=== PATIENT | male | born 1985 ===

== ENCOUNTER 2019-08-16 11:13 | Observation (INO) | payer SELFPAY ==
[~2019-08-16] VITALS: Ht 162 cm; Wt 80.5 kg
--- NOTE | 2019-08-16 11:53 | NUR ---
PT UNSURE OF MEDS STATES WAS GIVEN SOME KIND OF INSULIN PEN AND TOLD TO DIAL TO 5 AND TAKES IN AM
[2019-08-16] MEDS ORDERED: NS IV 1000 ML 1,000 ML IV SCH ×2 (12:15→13:30)
[2019-08-16 12:21] LABS: BILIRUBIN,URINE NEGATIVE (NEGATIVE); CLARITY,URINE CLEAR; COLOR,URINE YELLOW; GLUCOSE, URINE (UA) 4+ (NEGATIVE); KETONES,URINE 4+ (NEGATIVE); LEUKOCYTE ESTERASE ,URINE NEGATIVE (NEGATIVE); NITRITE,URINE NEGATIVE (NEGATIVE); PH,URINE 5 (5-9); PROTEIN,URINE 2+ (NEGATIVE); UROBILINOGEN,URINE NORMAL (NORMAL)
[2019-08-16 12:29] LABS: BACTERIA,URINE NEGATIVE /HPF; SQUAMOUS EPITHELIAL CELL,UR 0-2 /HPF; WBC,URINE RARE /HPF
--- NOTE | 2019-08-16 12:34 | ED General ---
General Chief Complaint: Glucose Problems Stated Complaint: HIGH BLOOD SUGAR Nursing Triage Note: PT SPEAKS [place]EN[place], INTERPRETOR W PT, PT HAS FSBS 228 AT THIS X. STATES WAS SENT BY [facility] FOR ADMISSION BY DR HERNANDEZ D/T SUGARS ELEVATED. Nursing Sepsis Screen: No Definite Risk Source of Information: Patient Exam Limitations: No Limitations History of Present Illness Date Seen by Provider: Aug 16, 2019 Time Seen by Provider: 12:29 Initial Comments Patient states he was referred to the emergency room to be admitted to the hospital for sugar control. He was diagnosed with diabetes about a month ago at [facility], was started on insulin 10units daily 2 days ago. He's been seeing Dr. Hernandez daily for the past 3 days, was referred to the emergency room yesterday but didn't know where the emergency room was at he did not come here until today. He reports no symptoms, he states he feels good, his blood sugar here was 228. Timing/Duration: Other Severity: Moderate Associated Systoms: Denies Symptoms Allergies and Home Medications Allergies Coded Allergies: No Known Drug Allergies (Unverified , 08/16/19) Patient Home Medication List Home Medication List Reviewed: Yes Review of Systems Review of Systems Constitutional: see HPI EENTM: see HPI Respiratory: no symptoms reported Cardiovascular: no symptoms reported Genitourinary: no symptoms reported Musculoskeletal: no symptoms reported Skin: no symptoms reported Psychiatric/Neurological: No Symptoms Reported Hematologic/Lymphatic: No Symptoms Reported Immunological/Allergic: no symptoms reported Past Afqpdib-Bvnjge-Dzoqna Hx Patient Social History Alcohol Use: Past History Number of Drinks Today: 0 Recreational Drug Use: No Smoking Status: Never a Smoker Recent Foreign Travel: No Contact w/Someone Who Travel: No Recent Infectious Disease Expo: No Recent Hopitalizations: No Past Medical History Surgeries: No Respiratory: No Cardiac: No Neurological: No Genitourinary: No Gastrointestinal: No Musculoskeletal: No Endocrine: Yes Diabetes, Insulin dep Are Your Blood Sugars Over 250: Yes HEENT: No Cancer: No Psychosocial: No Integumentary: No Blood Disorders: No Adverse Reaction/Blood Tranf: No Physical Exam Vital Signs Vital Signs - First Documented 08/16/19 11:39 Temp 36.8 Pulse 74 Resp 18 B/P (MAP) 119/78 (92) Pulse Ox 97 Capillary Refill : Less Than 3 Seconds Height, Weight, BMI Height: '" Weight: lbs. oz. kg; 30.00 BMI Method: General Appearance: No Apparent Distress, WD/WN Eyes: Bilateral Eye Normal Inspection, Bilateral Eye PERRL, Bilateral Eye EOMI HEENT: PERRL/EOMI, TMs Normal Neck: Full Range of Motion, Normal Inspection Respiratory: No Accessory Muscle Use, No Respiratory Distress Cardiovascular: Regular Rate, Rhythm, Normal Peripheral Pulses Gastrointestinal: Normal Bowel Sounds, Non Tender, Soft Extremity: Normal Capillary Refill, Normal Inspection Neurologic/Psychiatric: Alert, Oriented x3 Skin: Normal Color, Warm/Dry Progress/Results/Core Measures Suspected Sepsis Recent Fever Within 48 Hours: No Infection Criteria Present: None New/Unexplained Altered Menta: No Sepsis Screen: No Definite Risk SIRS Temperature: Pulse: 74 Respiratory Rate: 18 Laboratory Tests 08/16/19 12:25: White Blood Count 4.3 Blood Pressure 119 /78 Mean: 92 Laboratory Tests 08/16/19 12:25: Creatinine 0.85, Platelet Count 259, Total Bilirubin 1.2H Results/Orders Lab Results Laboratory Tests Test 08/16/19 11:40 08/16/19 12:13 08/16/19 12:25 Range/Units Glucometer 228 H 70-110 MG/DL Urine Color YELLOW Urine Clarity CLEAR Urine pH 5 5-9 Urine Specific [place] 1.025 H 1.016-1.022 Urine Protein 2+ H NEGATIVE Urine Glucose (UA) 4+ H NEGATIVE Urine Ketones 4+ H NEGATIVE Urine Nitrite NEGATIVE NEGATIVE Urine Bilirubin NEGATIVE NEGATIVE Urine Urobilinogen NORMAL NORMAL MG/DL Urine Leukocyte Esterase NEGATIVE NEGATIVE Urine RBC (Auto) NEGATIVE NEGATIVE Urine RBC NONE /HPF Urine WBC RARE /HPF Urine Squamous Epithelial Cells 0-2 /HPF Urine Crystals NONE /LPF Urine Bacteria NEGATIVE /HPF Urine Casts NONE /LPF Urine Mucus NEGATIVE /LPF Urine Culture Indicated NO White Blood Count 4.3 4.3-11.0 10^3/uL Red Blood Count 5.18 4.35-5.85 10^6/uL Hemoglobin 16.7 13.3-17.7 G/DL Hematocrit 47 40-54 % Mean Corpuscular Volume 90 80-99 FL Mean Corpuscular Hemoglobin 32 25-34 PG Mean Corpuscular Hemoglobin Concent 36 32-36 G/DL Red Cell Distribution Width 14.9 H 10.0-14.5 % Platelet Count 259 130-400 10^3/uL Mean Platelet Volume 9.8 7.4-10.4 FL Neutrophils (%) (Auto) 62 42-75 % Lymphocytes (%) (Auto) 25 12-44 % Monocytes (%) (Auto) 10 0-12 % Eosinophils (%) (Auto) 1 0-10 % Basophils (%) (Auto) 1 0-10 % Neutrophils # (Auto) 2.7 1.8-7.8 X 10^3 Lymphocytes # (Auto) 1.1 1.0-4.0 X 10^3 Monocytes # (Auto) 0.4 0.0-1.0 X 10^3 Eosinophils # (Auto) 0.1 0.0-0.3 10^3/uL Basophils # (Auto) 0.1 0.0-0.1 10^3/uL Sodium Level 137 135-145 MMOL/L Potassium Level 4.4 3.6-5.0 MMOL/L Chloride Level 100 98-107 MMOL/L Carbon Dioxide Level 22 21-32 MMOL/L Anion Gap 15 H 5-14 MMOL/L Blood Urea Nitrogen 14 7-18 MG/DL Creatinine 0.85 0.60-1.30 MG/DL Estimat Glomerular Filtration Rate > 60 BUN/Creatinine Ratio 16 Glucose Level 236 H 70-105 MG/DL Calcium Level 9.9 8.5-10.1 MG/DL Corrected Calcium 8.5-10.1 MG/DL Total Bilirubin 1.2 H 0.1-1.0 MG/DL Aspartate Amino Transf (AST/SGOT) 25 5-34 U/L Alanine Aminotransferase (ALT/SGPT) 25 0-55 U/L Alkaline Phosphatase 159 H 40-136 U/L Total Protein 8.5 H 6.4-8.2 GM/DL Albumin 4.6 H 3.2-4.5 GM/DL My Orders Orders - BASSAM ALCARAZ RETAIL DEPARTMENT SUPERVISOR Cbc With Automated Diff (08/16/19 11:51) Comprehensive Metabolic Panel (08/16/19 11:51) Ua Culture If Indicated (08/16/19 11:51) Ed Iv/Invasive Line Start (08/16/19 11:51) Ns Iv 1000 Ml (Sodium Chloride 0.9%) (08/16/19 12:15) Hemoglobin A1c (08/16/19 12:16) Ns Iv 1000 Ml (Sodium Chloride 0.9%) (08/16/19 13:30) Vital Signs/I&O 08/16/19 11:39 Temp 36.8 Pulse 74 Resp 18 B/P (MAP) 119/78 (92) Pulse Ox 97 Capillary Refill : Less Than 3 Seconds Blood Pressure Mean: 92 Departure Communication (Admissions) Time/Spoke to Admitting Phy: 14:[address] Cheney, we'll admit observation, discussed with the patient and he agrees with this plan. I'll consult underwriting assistant, the patient questions (using [employer] phone interpreters) whether the diabetes could be related to the swelling at the tip of his penis. I examined the tip of his penis and there is balanitis/whitish adherent material beneath the foreskin. Discussed with them this was a candidal infection and could be taken care of with a cream. I will use that upstairs. Impression Primary Impression: Diabetes mellitus Qualified Codes: E13.69 - Other specified diabetes mellitus with other specified complication Disposition: ADMITTED INPATIENT Condition: Stable Admissions Decision to Admit Reason: Admit from ER (General) Decision to Admit/Date: Aug 16, 2019 Time/Decision to Admit Time: 14:04 BASSAM ALCARAZ APRN Aug 16, 2019 12:34
[2019-08-16 12:48] LABS: BASOPHILS # (AUTO) 0.1 10^3/uL (0.0-0.1); BASOPHILS % (AUTO) 1 % (0-10); EOSINOPHILS # (AUTO) 0.1 10^3/uL (0.0-0.3); EOSINOPHILS % (AUTO) 1 % (0-10); HEMATOCRIT 47 % (40-54); HEMOGLOBIN 16.7 G/DL (13.3-17.7); LYMPHOCYTES # (AUTO) 1.1 X 10^3 (1.0-4.0); LYMPHOCYTES % (AUTO) 25 % (12-44); MEAN CORPUSCULAR HEMOGLOBIN 32 PG (25-34); MEAN CORPUSCULAR HGB CONC 36 G/DL (32-36); MEAN CORPUSCULAR VOLUME 90 FL (80-99); MEAN PLATELET VOLUME 9.8 FL (7.4-10.4); MONOCYTES # (AUTO) 0.4 X 10^3 (0.0-1.0); MONOCYTES % (AUTO) 10 % (0-12); NEUTROPHILS # (AUTO) 2.7 X 10^3 (1.8-7.8); NEUTROPHILS % (AUTO) 62 % (42-75); PLATELET COUNT 259 10^3/uL (130-400); RED CELL DISTRIBUTION WIDTH 14.9 % (10.0-14.5); WHITE BLOOD COUNT 4.3 10^3/uL (4.3-11.0)
[2019-08-16 13:07] LABS: ALANINE AMINOTRANSFERASE 25 U/L (0-55); ALBUMIN 4.6 GM/DL (3.2-4.5); ALKALINE PHOSPHATASE 159 U/L (40-136); BILIRUBIN,TOTAL 1.2 MG/DL (0.1-1.0); BUN/CREATININE RATIO 16; CALCIUM 9.9 MG/DL (8.5-10.1); CARBON DIOXIDE 22 MMOL/L (21-32); CHLORIDE 100 MMOL/L (98-107); CREATININE SERUM 0.85 MG/DL (0.60-1.30); GFR ESTIMATED > 60; GLUCOSE 236 MG/DL (70-105); POTASSIUM 4.4 MMOL/L (3.6-5.0); SODIUM 137 MMOL/L (135-145); TOTAL PROTEIN 8.5 GM/DL (6.4-8.2)
--- NOTE | 2019-08-16 14:45 | NUR ---
BRENNEN PARRA admitted to room 413-1, with an admitting diagnosis of DIABETES, on 08/16/19 from ED via WHEELCHAIR, accompanied by STAFF/FAMILY. BRENNEN PARRA introduced to surroundings, call light, bed controls, phone, TV, temperature control, lights, meal times, smoking policy, visitor policy, side rail policy, bathrooms and showers. BRENNEN PARRA verbalizes understanding that [facility] is not responsible for the loss or damage to any personal effects or valuables that are kept in the patients posession during their hospitalization. The following Patient Care Plans were discussed with the PATIENT: Discharge Planning,PAIN, DIABETES. BRENNEN PARRA verbalizes understanding of Interdisciplinary Patient Education. Patient and/or family were informed about the Rapid Response Team and its purpose.
[2019-08-16] MEDS ORDERED: CATHETER FLUSH 10 ML SYR IV PRN (15:00)
[2019-08-16] MEDS: NYSTATIN CREAM (MYCOSTATIN) 30 GM TUBE TP SCH ×2 (15:19→21:02)
[2019-08-16] MEDS: NS W/KCL 40 MEQ/L 1,000 ML IV SCH ×2 (15:20→23:33)
[2019-08-16] MEDS ORDERED: INSU100I10 SQ (15:38)
--- NOTE | 2019-08-16 15:38 | NUR ---
SPOKE WITH THE PATIENT ABOUT HIS MEDICATIONS. HE STATES HE WAS GIVEN AN INSULIN PEN A FEW DAYS AGO [facility] HE HAS BEEN USING 5 UNITS DAILY. I CALLED [facility] AND SPOKE WITH A NURSE WHO VERIFIED HE WAS GIVEN LANTUS 5 UNITS DAILY X 2 DAYS. PATIENT STATES HE DOES NOT TAKE ANY OTHER MEDICATIONS OR ANYTHING OTC.
[2019-08-16 16:00] VITALS: BP 126/84
--- NOTE | 2019-08-16 16:32 | History & Physical ---
HPI History of Present Illness: 34 yo male came to the ER after being instructed to yesterday by clinic because of persistent ketones and glucose in urine in spite of starting insulin, they had requested he get lab work done but he hadn't and there was concern for DKA. He states he is feeling fine. He was diagnosed with diagnosed with diabetes 3-4 days ago. He was sick for about 2 months but didn't know what was going on. He was drinking a lot of water and didn't want to eat, vision was bad and he was tired. He states he drank a lot of natural teas/plants that were good for diabetes, he states his girlfriend told him. He does feel that those made him feel better, and then when he went to the doctor he was told that he had tania betes. Tuesday at clinic he was started on insulin and he states he was checking his blood sugar at home and checked it this morning and states he was getting numbers like 244 or so. Source: patient, educational interpreter Exam Limitations: language barrier Date seen by provider: Aug 16, 2019 Time Seen by Provider: 16:35 Attending Physician Jogre Cheney MD PCP Center/[facility] [place] Consult Date of Admission Aug 16, 2019 at 14:09 Home Medications Home Medications Reviewed patient Home Medication Reconciliation performed by pharmacy medication reconciliations certified pest control technician and/or nursing. Patients Allergies have been reviewed. Allergies Coded Allergies: No Known Drug Allergies (Unverified , 08/16/19) FCW-[id number]-Kbkutk Hx Patient Social History Alcohol Use: Past History (now drinks one or two beers at a time since being sick, but prior to that was drinking a lot- cannot quantify- states a lot every day) Recreational Drug Use: No Smoking Status: Never a Smoker Recent Foreign Travel: No Contact w/other who traveled: No Recent Hopitalizations: No Recent Infectious Disease Expo: No Past Medical History PMHx: Diabetes PSurgHx: denies Family Medical History Significant Family History: Diabetes Review of Systems ([facility]) Constitutional: No fever EENTM: No nose congestion, No throat pain Respiratory: No cough, No short of breath Cardiovascular: No chest pain Gastrointestinal: abdominal pain (tingling in abdomen after insulin inject ions); No constipation, No diarrhea, No nausea, No vomiting Genitourinary: No dysuria Musculoskeletal: No joint pain Skin: rash (redness in genital area- on penis, told doctor about it and got a cream for it, denies discharge from penis) Psychiatric/Neurological: Denies Anxiety, Denies Depressed Reviewed Test Results Reviewed Test Results Lab Laboratory Tests Test 08/16/19 11:40 08/16/19 12:13 08/16/19 12:25 08/16/19 14:10 Range/Units Glucometer 228 H 174 H 70-110 MG/DL Urine Color YELLOW Urine Clarity CLEAR Urine pH 5 5-9 Urine Specific [place] 1.025 H 1.016-1.022 Urine Protein 2+ H NEGATIVE Urine Glucose (UA) 4+ H NEGATIVE Urine Ketones 4+ H NEGATIVE Urine Nitrite NEGATIVE NEGATIVE Urine Bilirubin NEGATIVE NEGATIVE Urine Urobilinogen NORMAL NORMAL MG/DL Urine Leukocyte Esterase NEGATIVE NEGATIVE Urine RBC (Auto) NEGATIVE NEGATIVE Urine RBC NONE /HPF Urine WBC RARE /HPF Urine Squamous Epithelial Cells 0-2 /HPF Urine Crystals NONE /LPF Urine Bacteria NEGATIVE /HPF Urine Casts NONE /LPF Urine Mucus NEGATIVE /LPF Urine Culture Indicated NO White Blood Count 4.3 4.3-11.0 10^3/uL Red Blood Count 5.18 4.35-5.85 10^6/uL Hemoglobin 16.7 13.3-17.7 G/DL Hematocrit 47 40-54 % Mean Corpuscular Volume 90 80-99 FL Mean Corpuscular Hemoglobin 32 25-34 PG Mean Corpuscular Hemoglobin Concent 36 32-36 G/DL Red Cell Distribution Width 14.9 H 10.0-14.5 % Platelet Count 259 130-400 10^3/uL Mean Platelet Volume 9.8 7.4-10.4 FL Neutrophils (%) (Auto) 62 42-75 % Lymphocytes (%) (Auto) 25 12-44 % Monocytes (%) (Auto) 10 0-12 % Eosinophils (%) (Auto) 1 0-10 % Basophils (%) (Auto) 1 0-10 % Neutrophils # (Auto) 2.7 1.8-7.8 X 10^3 Lymphocytes # (Auto) 1.1 1.0-4.0 X 10^3 Monocytes # (Auto) 0.4 0.0-1.0 X 10^3 Eosinophils # (Auto) 0.1 0.0-0.3 10^3/uL Basophils # (Auto) 0.1 0.0-0.1 10^3/uL Sodium Level 137 135-145 MMOL/L Potassium Level 4.4 3.6-5.0 MMOL/L Chloride Level 100 98-107 MMOL/L Carbon Dioxide Level 22 21-32 MMOL/L Anion Gap 15 H 5-14 MMOL/L Blood Urea Nitrogen 14 7-18 MG/DL Creatinine 0.85 0.60-1.30 MG/DL Estimat Glomerular Filtration Rate > 60 BUN/Creatinine Ratio 16 Glucose Level 236 H 70-105 MG/DL Calcium Level 9.9 8.5-10.1 MG/DL Corrected Calcium 8.5-10.1 MG/DL Total Bilirubin 1.2 H 0.1-1.0 MG/DL Aspartate Amino Transf (AST/SGOT) 25 5-34 U/L Alanine Aminotransferase (ALT/SGPT) 25 0-55 U/L Alkaline Phosphatase 159 H 40-136 U/L Total Protein 8.5 H 6.4-8.2 GM/DL Albumin 4.6 H 3.2-4.5 GM/DL Physical Exam-(CHC) Physical Exam Vital Signs VS - Last 72 Hours, by Label 08/16/19 08/16/19 08/16/19 08/16/19 11:39 14:09 16:00 17:27 Temp 36.8 36.8 36.4 36.4 Pulse 74 74 68 68 Resp 18 18 18 16 B/P (MAP) 119/78 (92) 119/78 (92) 126/84 (98) 126/84 Pulse Ox 97 97 99 99 O2 Delivery Room Air Room Air 08/16/19 08/16/19 17:45 19:32 Temp 36.6 Pulse 73 Resp 16 B/P (MAP) 114/76 (89) Pulse Ox 97 O2 Delivery Room Air Room Air Capillary Refill : Less Than 3 Seconds General Appearance: WD/WN, no apparent distress Respiratory: lungs clear, normal breath sounds Cardiovascular: regular rate, rhythm, no murmur Gastrointestinal: normal bowel sounds, non tender, soft Extremities: no pedal edema Neurologic/Psychiatric: alert, normal mood/affect Skin: normal color, warm/dry Assessment/Plan Assessment/Plan Admission Status: Observation (1) Diabetes mellitus Status: Chronic Assessment & Plan: Sliding scale insulin, diabetic diet, diabetic education. AG 15 but CO2 okay, monitor closely. Qualifiers: Qualified Codes: E13.65 - Other specified diabetes mellitus with hyperglycemia (2) Elevated bilirubin Status: Acute Assessment & Plan: Check liver/gall bladder ultrasound and hepatitis panel given heavy alcohol use history (3) Elevated alkaline phosphatase level Status: Acute (4) DVT prophylaxis Status: Acute Assessment & Plan: Enoxaparin Clinical Quality Measures DVT/VTE Risk/Contraindication: RFS Level Per Nursing on Admit: 2=Moderate JORGE CHENEY MD Aug 16, 2019 16:32
[2019-08-16] MEDS ORDERED: FLU QUADRIvalent (5+ YOA) 2019-2020 (AFLURIA) 0.5 ML IM ONE (17:15)
[2019-08-16 17:27] VITALS: BP 126/84
--- NOTE | 2019-08-16 17:59 | NUR ---
BLAS LAINEZ PRECEPTOR FOR TIFFANY LAINEZ.
[2019-08-16 19:32] VITALS: BP 114/76
[2019-08-16] MEDS: inSUlin ASPART (NovoLOG) 1 UNIT/0.01 ML (CHARGE PER UNIT) SC SCH (21:02)
[2019-08-17 00:06] VITALS: BP 102/63
[2019-08-17 04:38] LABS: BASOPHILS % (AUTO) 1 % (0-10); EOSINOPHILS # (AUTO) 0.1 10^3/uL (0.0-0.3); EOSINOPHILS % (AUTO) 3 % (0-10); HEMATOCRIT 40 % (40-54); HEMOGLOBIN 13.9 G/DL (13.3-17.7); LYMPHOCYTES # (AUTO) 1.9 X 10^3 (1.0-4.0); LYMPHOCYTES % (AUTO) 41 % (12-44); MEAN CORPUSCULAR HEMOGLOBIN 31 PG (25-34); MEAN CORPUSCULAR HGB CONC 35 G/DL (32-36); MEAN CORPUSCULAR VOLUME 90 FL (80-99); MONOCYTES # (AUTO) 0.6 X 10^3 (0.0-1.0); MONOCYTES % (AUTO) 12 % (0-12); NEUTROPHILS % (AUTO) 44 % (42-75); PLATELET COUNT 238 10^3/uL (130-400); WHITE BLOOD COUNT 4.7 10^3/uL (4.3-11.0)
[2019-08-17 04:50] VITALS: BP 100/63
[2019-08-17 04:59] LABS: ALANINE AMINOTRANSFERASE 19 U/L (0-55); ALBUMIN 3.4 GM/DL (3.2-4.5); ALKALINE PHOSPHATASE 94 U/L (40-136); BILIRUBIN,TOTAL 0.8 MG/DL (0.1-1.0); BUN/CREATININE RATIO 11; CALCIUM 8.7 MG/DL (8.5-10.1); CARBON DIOXIDE 23 MMOL/L (21-32); CHLORIDE 108 MMOL/L (98-107); CREATININE SERUM 0.66 MG/DL (0.60-1.30); GFR ESTIMATED > 60; GLUCOSE 71 MG/DL (70-105); POTASSIUM 3.3 MMOL/L (3.6-5.0); SODIUM 142 MMOL/L (135-145); TOTAL PROTEIN 5.9 GM/DL (6.4-8.2)
[2019-08-17] MEDS: inSUlin ASPART (NovoLOG) 1 UNIT/0.01 ML (CHARGE PER UNIT) SC SCH ×2 (05:34→08:28)
[2019-08-17] MEDS: NS W/KCL 40 MEQ/L 1,000 ML IV SCH (06:29)
[2019-08-17] MEDS ORDERED: KCL 20 MEQ TAB (K-DUR) PO NR (07:30)
[2019-08-17 08:00] VITALS: BP 98/60
[2019-08-17] MEDS: NYSTATIN CREAM (MYCOSTATIN) 30 GM TUBE TP SCH (08:28)
--- NOTE | 2019-08-17 10:03 | Diagnostic Imaging Report ---
PROCEDURE: US Gallbladder. TECHNIQUE: Multiple real-time grayscale images were obtained over the right upper quadrant in various projections. INDICATION: Elevated liver enzymes, abdominal pain FINDINGS: Right upper quadrant ultrasound demonstrates pancreatic head and proximal body to be normal. The remainder is obscured by overlying bowel gas. Liver is of normal size, shape, texture and echogenicity. No duct dilatation is present. Common bile duct was never identified. Gallbladder demonstrates no wall thickening, pericholecystic fluid, ascites or sonographic Carter's sign. The gallbladder wall is of normal thickness measuring 1.9 mm. The right kidney is of normal size, shape, texture, and echogenicity. No calculi or hydronephrosis is present. IMPRESSION: Essentially normal right upper quadrant ultrasound. The common bile duct was never identified and the pancreatic tail is obscured by bowel gas. Dictated by: Dictated on workstation # [id number]
[2019-08-17] MEDS ORDERED: NYST15CR TP (10:35)
[2019-08-17] MEDS ORDERED: INSU100I10 SQ (10:35)
--- NOTE | 2019-08-17 10:37 | Discharge Instructions ---
Discharge [facility] Discharge Medications New, Converted or Re-Newed RX: Transmitted to Pharmacy New Medications: Nystatin (Nystatin) 15 Gm Cream..g. 1 GM TP TID, #1 TUBE 0 Refills Changed Medications: Insulin Glargine,Hum.rec.anlog (Lantus Solostar) 100 Unit/1 Ml Insuln.pen 10 UNIT SQ DAILY, #1 EA (Changed from: 5 UNIT) Patient Instructions Goal/Follow Up Appt: Follow up with Dr. Hernandez on 08/22 at 9:40 am. Patient Instructions: Increase Lantus dose to 10 units each night. Return to The Hospital For: Fever, blood sugar above 300. Activity & Diet Discharge Diet: ADA Diet Activity as Tolerated: Yes Orders-Post D/C & Referrals Pneu Vac Indicated: Yes Copy Copies To 1: AUGUSTO HERNANDEZ MD, BETHANY N MD Aug 17, 2019 10:37
--- NOTE | 2019-08-17 17:01 | Discharge Summary ---
Discharge Summary Hospital Course Problems/Diagnosis: (1) Diabetes mellitus Status: Chronic Assessment & Plan: Sliding scale insulin, diabetic diet, diabetic education. AG 15 but CO2 okay on admit, resolved next day. Blood sugar improved with 10 units of long acting insulin evening of admit, discharged with increased lantus dose to 10 units. religious educator met with patient as well. Qualifiers: Qualified Codes: E13.65 - Other specified diabetes mellitus with hyperglycemia (2) Elevated bilirubin Status: Resolved Resolution Date/Time: 08/17/19 @ 17:00 Assessment & Plan: Check liver/gall bladder ultrasound and hepatitis panel given heavy alcohol use history Hep panel negative, gall bladder/liver US unremarkable although CBD not seen. Labs normal on day of d/c. Discussed safe alcohol intake and he states he plans to quit completely, discussed following up with Dr. Hernandez if he has difficulty or gets sick with stopping. Would not anticipate significant withdrawal issues since his use last 2 months has been down to 1-2 beers per day. (3) Elevated alkaline phosphatase level Status: Resolved Resolution Date/Time: 08/17/19 @ 17:00 Hospital Course Date of Admission: Aug 16, 2019 at 14:09 Admission Diagnosis : Family Physician/Provider: Date of Discharge: 08/17/19 Discharge Diagnosis: See problems Hospital Course: See problems. Labs and Pending Lab Test: Laboratory Tests 08/16/19 19:35: Glucometer 230H 08/17/19 03:55: Sodium Level 142, Potassium Level 3.3L, Chloride Level 108H, Carbon Dioxide Level 23, Anion Gap 11, Blood Urea Nitrogen 7, Creatinine 0.66, Estimat Glomerular Filtration Rate > 60, BUN/Creatinine Ratio 11, Glucose Level 71, Calcium Level 8.7, Corrected Calcium 9.2, Total Bilirubin 0.8, Aspartate Amino Transf (AST/SGOT) 17, Alanine Aminotransferase (ALT/SGPT) 19, Alkaline Phosphatase 94, Total Protein 5.9L, Albumin 3.4 08/17/19 04:10: White Blood Count 4.7, Red Blood Count 4.46, Hemoglobin 13.9, Hematocrit 40, Mean Corpuscular Volume 90, Mean Corpuscular Hemoglobin 31, Mean Corpuscular Hemoglobin Concent 35, Red Cell Distribution Width 14.0, Platelet Count 238, Mean Platelet Volume 9.0, Neutrophils (%) (Auto) 44, Lymphocytes (%) (Auto) 41, Monocytes (%) (Auto) 12, Eosinophils (%) (Auto) 3, Basophils (%) (Auto) 1, Neutrophils # (Auto) 2.0, Lymphocytes # (Auto) 1.9, Monocytes # (Auto) 0.6, Eosinophils # (Auto) 0.1, Basophils # (Auto) 0.0 08/17/19 08:21: Glucometer 89 Home Meds Active Nystatin 15 Gm Cream..g. 1 Gm TP TID Lantus Solostar (Insulin Glargine,Hum.rec.anlog) 100 Unit/1 Ml Insuln.pen 10 Unit SQ DAILY Assessment/Pt DC Instructions See above. Orders-Post D/C & Referrals Pneu Vac Indicated: Yes Discharge Physical Examination Allergies: Coded Allergies: No Known Drug Allergies (Unverified , 08/16/19) General Appearance: No Apparent Distress, WD/WN Respiratory: Lungs Clear, Normal Breath Sounds Cardiovascular: Regular Rate, Rhythm, No Murmur Gastrointestinal: Normal Bowel Sounds, Non Tender, Soft Extremity: No Pedal Edema Skin: Normal Color, Warm/Dry Neurologic/Psychiatric: Alert, Normal Mood/Affect Copy Copies To 1: AUGUSTO HERNANDEZ MD Discharge Summary Date of Admission Aug 16, 2019 at 14:09 Date of Discharge Aug 17, 2019 at 12:32 Discharge Date: Aug 17, 2019 Clinical Quality Measures DVT/VTE Risk/Contraindication: Risk Factor Score Per Nursin RFS Level Per Nursing on Admit: 2=Moderate JORGE HINKLE MD Aug 17, 2019 17:01
[2019-08-17 21:51] LABS: HEPATITIS C ANTIBODY C Non-Reactive (Non-Reactive)
== END 2019-08-17 10:35 | disposition home or self-care (01) ==
LOC: ER 11:14 → UNDOADMOB 14:09 → 4TH 14:09 → UNDODISOB 08-17 12:32
PROVIDERS: ADMIT Family Medicine; ATTEND Family Medicine
DX: E11.65 Type 2 diabetes mellitus with hyperglycemia (principal); E80.7 Disorder of bilirubin metabolism, unspecified; R74.8 Abnormal levels of other serum enzymes; Z79.4 Long term (current) use of insulin; Z83.3 Family history of diabetes mellitus
CPT/HCPCS: 36415; 76705; 80053; 80074; 81000; 82962; 83036; 85025; 96360; G0378